=== PATIENT | female | born 1935 | race Caucasian/White ===

== ENCOUNTER 2017-09-09 18:07 | Inpatient (IN) | payer OTHER, MEDICAID ==
[2017-09-09] MEDS: PANTOPRAZOLE 40 MG INJ IV (19:02)
[2017-09-09 19:22] LABS: ADD MAN DIFF? NO
[2017-09-09 19:25] LABS: URINE PH (Dip) POC 8.5 (5.0-8.5)
[2017-09-09 19:25] LABS: ABNORMAL IP MESSAGE 1; BASOPHIL # 0.1 10^3/ul (0.0-0.1); BASOPHILS % 0.5 % (0.0-2.0); HEMATOCRIT 27.5 % (37.0-47.0); LYMPHOCYTES # 0.5 10^3/ul (0.8-2.9); LYMPHOCYTES % 3.1 % (15.0-51.0); MEAN CORPUSCULAR HEMOGLOBIN 20.7 pg (29.0-33.0); MEAN CORPUSCULAR HGB CONC 32.7 g/dl (32.0-37.0); MEAN CORPUSCULAR VOLUME 63.4 fl (82.0-101.0); MEAN PLATELET VOLUME 11.8 fl (7.4-10.4); MONOCYTE # 1.1 10^3/ul (0.3-0.9); MONOCYTES % 7.5 % (0.0-11.0); NEUTROPHIL # 13.1 10^3/ul (1.6-7.5); NEUTROPHILS % 88.4 % (39.0-77.0); NUCLEATED RED BLOOD CELLS% 0.2 /100WBC (0.0-0.0); PLATELET COUNT 282 10^3/UL (140-415); RED BLOOD COUNT 4.34 10^6/ul (4.20-5.40); RED CELL DISTRIBUTION WIDTH 14.6 % (11.5-14.5); URINE BLOOD (Dip) POC Trace-lysed (NEGATIVE); URINE GLUCOSE (Dip) POC Negative (NEGATIVE); URINE KETONES (Dip) POC Negative (NEGATIVE); URINE LEUKOCYTE EST (Dip) POC Trace (NEGATIVE); URINE NITRITE (Dip) POC Negative (NEGATIVE); URINE TOTAL PROTEIN POC 1+ (NEGATIVE)
[2017-09-09 19:25] LABS: WHITE BLOOD COUNT 14.8 10^3/ul (4.8-10.8)
[2017-09-09 19:27] LABS: POSITIVE DIFF @See below
[2017-09-09 19:42] LABS: ALANINE AMINOTRANSFERASE 188 IU/L (13-69); ALBUMIN 4.4 g/dl (3.3-4.9); ALBUMIN/GLOBULIN RATIO 1.07; ALKALINE PHOSPHATASE 146 IU/L (42-121); ANION GAP 16 (8-16); ASPARTATE AMINO TRANSFERASE 399 IU/L (15-46); BILIRUBIN,INDIRECT 1.9 mg/dl (0-1.1); BILIRUBIN,TOTAL 2.5 mg/dl (0.2-1.3); BLOOD UREA NITROGEN 34 mg/dl (7-20); CALCIUM 9.3 mg/dl (8.4-10.2); CARBON DIOXIDE 33 mmol/L (21-31); CHLORIDE 90 mmol/L (97-110); CREATININE 0.78 mg/dl (0.44-1.00); GLUCOSE 105 mg/dl (70-220); POTASSIUM 3.3 mmol/L (3.5-5.1); SODIUM 136 mmol/L (135-144); TOTAL PROTEIN 8.5 g/dl (6.1-8.1)
[2017-09-09 20:38] LABS: LIPASE 47018 U/L (23-300)
[2017-09-09] MEDS: PIPER-TAZO 3.375 GM IV (PMX) 100 ML IVPB (20:40)
[2017-09-09] MEDS: morphine 2 MG INJ IV ×2 (20:40→22:54)
[2017-09-09] MEDS: SOD CHLORIDE 0.9% 1,000 ML IV (20:40)
[2017-09-09] MEDS: ONDANSETRON 4 MG INJ IV (20:40)
[2017-09-09] MEDS: POTASSIUM CHLORIDE 100 ML IVPB (21:31)
[2017-09-09] MEDS ORDERED: morphine 4 MG/ML VIAL IV (22:00)
[2017-09-09] MEDS: NS + KCL 20 MEQ 1,000 ML IV (22:55)
[2017-09-10] MEDS: POTASSIUM CHLORIDE 100 ML IVPB (00:17)
[2017-09-10] MEDS: PIPER-TAZO 2.25 GM (PMX) 50 ML IVPB ×3 (05:59→20:31)
[2017-09-10] MEDS: ONDANSETRON 4 MG INJ IV (05:59)
[2017-09-10] MEDS: PANTOPRAZOLE 40 MG INJ IV (05:59)
[2017-09-10] MEDS: NS + KCL 20 MEQ 1,000 ML IV ×4 (06:04→23:03)
[2017-09-10 08:46] LABS: ADD MAN DIFF? NO
[2017-09-10 08:55] LABS: ABNORMAL IP MESSAGE 1; BASOPHILS % 0.2 % (0.0-2.0); HEMATOCRIT 24.5 % (37.0-47.0); HEMOGLOBIN 8.1 g/dl (12.0-16.0); LYMPHOCYTES # 1.7 10^3/ul (0.8-2.9); LYMPHOCYTES % 8.5 % (15.0-51.0); MEAN CORPUSCULAR HEMOGLOBIN 20.9 pg (29.0-33.0); MEAN CORPUSCULAR HGB CONC 33.1 g/dl (32.0-37.0); MEAN CORPUSCULAR VOLUME 63.1 fl (82.0-101.0); MEAN PLATELET VOLUME 12.1 fl (7.4-10.4); MONOCYTE # 1.5 10^3/ul (0.3-0.9); MONOCYTES % 7.5 % (0.0-11.0); NEUTROPHIL # 16.8 10^3/ul (1.6-7.5); NEUTROPHILS % 83.3 % (39.0-77.0); NUCLEATED RED BLOOD CELLS% 0.1 /100WBC (0.0-0.0); PLATELET COUNT 252 10^3/UL (140-415); RED BLOOD COUNT 3.88 10^6/ul (4.20-5.40); RED CELL DISTRIBUTION WIDTH 15.2 % (11.5-14.5)
[2017-09-10 08:55] LABS: WHITE BLOOD COUNT 20.2 10^3/ul (4.8-10.8)
[2017-09-10 08:59] LABS: POSITIVE DIFF @See below
[2017-09-10 09:16] LABS: ALANINE AMINOTRANSFERASE 646 IU/L (13-69); ALBUMIN 3.1 g/dl (3.3-4.9); ALKALINE PHOSPHATASE 180 IU/L (42-121); ANION GAP 10 (8-16); ASPARTATE AMINO TRANSFERASE 727 IU/L (15-46); BILIRUBIN,TOTAL 3.1 mg/dl (0.2-1.3); BLOOD UREA NITROGEN 22 mg/dl (7-20); CALCIUM 8.5 mg/dl (8.4-10.2); CARBON DIOXIDE 30 mmol/L (21-31); CHLORIDE 107 mmol/L (97-110); CREATININE 0.71 mg/dl (0.44-1.00); GLUCOSE 79 mg/dl (70-220); POTASSIUM 4.8 mmol/L (3.5-5.1); SODIUM 142 mmol/L (135-144); TOTAL PROTEIN 6.3 g/dl (6.1-8.1)
[2017-09-10] MEDS ORDERED: BISACODYL 10 MG SUPP PR (10:00)
[2017-09-10] MEDS ORDERED: NACL 0.9% 3 ML SYG IV (10:00)
[2017-09-10] MEDS ORDERED: ONDANSETRON 4 MG INJ IV (10:00)
[2017-09-10] MEDS ORDERED: DOCUSATE SODIUM 100 MG CAP PO (10:00)
[2017-09-10] MEDS ORDERED: MAGNESIUM HYDROXIDE 30ML CUP PO (10:00)
[2017-09-10 11:26] LABS: LIPASE 8369 U/L (23-300)
[2017-09-10 11:26] LABS: AMYLASE 1434 U/L (11-123)
[2017-09-10 11:54] LABS: LACTIC ACID 0.9 mmol/L (0.5-2.0)
[2017-09-10 12:00] LABS: INR 1.22; PROTIME 15.6 Sec (11.9-14.9); PT RATIO 1.2
[2017-09-10 12:01] LABS: PARTIAL THROMBOPLASTIN TIME 30.9 Sec (25.0-35.0)
[2017-09-10] MEDS: LEVOTHYROXINE 100 MCG VIAL IV (12:20)
[2017-09-10 12:38] LABS: IRON 45 ug/dl (35-150)
[2017-09-10 12:47] LABS: % IRON SATURATION 18 % SAT (22-52); TOTAL IRON BINDING CAPACITY 257 ug/dl (241-421)
[2017-09-11] MEDS: PIPER-TAZO 2.25 GM (PMX) 50 ML IVPB (04:53)
[2017-09-11] MEDS: LEVOTHYROXINE 100 MCG VIAL IV (04:53)
[2017-09-11] MEDS: PANTOPRAZOLE 40 MG INJ IV (04:53)
[2017-09-11] MEDS: NS + KCL 20 MEQ 1,000 ML IV (04:53)
[2017-09-11] MEDS: SOD CHLORIDE 0.9% 1,000 ML IV (05:48)
[2017-09-11 07:38] LABS: ADD MAN DIFF? NO
[2017-09-11 07:42] LABS: WHITE BLOOD COUNT 12.1 10^3/ul (4.8-10.8)
[2017-09-11 07:42] LABS: BASOPHIL # 0.1 10^3/ul (0.0-0.1); BASOPHILS % 0.6 % (0.0-2.0); EOSINOPHILS % 0.2 % (0.0-7.0); HEMATOCRIT 26.4 % (37.0-47.0); HEMOGLOBIN 8.3 g/dl (12.0-16.0); LYMPHOCYTES # 0.9 10^3/ul (0.8-2.9); LYMPHOCYTES % 7.7 % (15.0-51.0); MEAN CORPUSCULAR HEMOGLOBIN 20.5 pg (29.0-33.0); MEAN CORPUSCULAR HGB CONC 31.4 g/dl (32.0-37.0); MEAN CORPUSCULAR VOLUME 65.3 fl (82.0-101.0); MEAN PLATELET VOLUME 12.2 fl (7.4-10.4); MONOCYTE # 0.8 10^3/ul (0.3-0.9); MONOCYTES % 6.2 % (0.0-11.0); NEUTROPHIL # 10.3 10^3/ul (1.6-7.5); NEUTROPHILS % 84.9 % (39.0-77.0); PLATELET COUNT 256 10^3/UL (140-415); RED BLOOD COUNT 4.04 10^6/ul (4.20-5.40); RED CELL DISTRIBUTION WIDTH 15.2 % (11.5-14.5)
[2017-09-11 08:01] LABS: AMYLASE 699 U/L (11-123)
[2017-09-11 08:02] LABS: PHOSPHORUS 3.9 mg/dl (2.5-4.9)
[2017-09-11 08:02] LABS: MAGNESIUM 2.1 mg/dl (1.7-2.5)
[2017-09-11 08:03] LABS: ALANINE AMINOTRANSFERASE 443 IU/L (13-69); ALBUMIN 3.3 g/dl (3.3-4.9); ALBUMIN/GLOBULIN RATIO 0.94; ALKALINE PHOSPHATASE 180 IU/L (42-121); ANION GAP 13 (8-16); ASPARTATE AMINO TRANSFERASE 272 IU/L (15-46); BILIRUBIN,INDIRECT 2.1 mg/dl (0-1.1); BILIRUBIN,TOTAL 2.1 mg/dl (0.2-1.3); BLOOD UREA NITROGEN 22 mg/dl (7-20); CALCIUM 8.6 mg/dl (8.4-10.2); CARBON DIOXIDE 23 mmol/L (21-31); CHLORIDE 113 mmol/L (97-110); CREATININE 0.63 mg/dl (0.44-1.00); SODIUM 145 mmol/L (135-144); TOTAL PROTEIN 6.8 g/dl (6.1-8.1)
[2017-09-11 08:16] LABS: GLUCOSE 38 mg/dl (70-220)
[2017-09-11 08:20] LABS: LIPASE 2869 U/L (23-300)
[2017-09-11 08:34] LABS: HEPATITIS B SURFACE ANTIGEN NEGATIVE (NEGATIVE)
[2017-09-11 08:50] LABS: HEPATITIS C VIRAL ANTIBODY NEGATIVE (NEGATIVE)
[2017-09-11 08:50] LABS: HEPATITIS B SURFACE ANTIBODY NEGATIVE (NEGATIVE)
[2017-09-11] MEDS: DEXTROSE 5%-0.9% NACL 1,000 ML IV ×2 (09:17→19:03)
[2017-09-11 11:06] LABS: SMOOTH MUSCLE AB SCREEN NEGATIVE (NEGATIVE)
[2017-09-11] MEDS: ACETAMINOPHEN 325 MG TAB PO (23:55)
[2017-09-12] MEDS: PANTOPRAZOLE 40 MG INJ IV (06:30)
[2017-09-12] MEDS: LEVOTHYROXINE 100 MCG VIAL IV (06:30)
[2017-09-12] MEDS: DEXTROSE 5%-0.9% NACL 1,000 ML IV (08:24)
[2017-09-12 08:58] LABS: ADD MAN DIFF? NO
[2017-09-12 09:10] LABS: ABNORMAL IP MESSAGE 1; BASOPHIL # 0.1 10^3/ul (0.0-0.1); BASOPHILS % 0.5 % (0.0-2.0); EOSINOPHILS # 0.1 10^3/ul (0.0-0.5); EOSINOPHILS % 0.6 % (0.0-7.0); HEMATOCRIT 24.6 % (37.0-47.0); HEMOGLOBIN 7.8 g/dl (12.0-16.0); LYMPHOCYTES # 1.3 10^3/ul (0.8-2.9); LYMPHOCYTES % 13.6 % (15.0-51.0); MEAN CORPUSCULAR HEMOGLOBIN 20.4 pg (29.0-33.0); MEAN CORPUSCULAR HGB CONC 31.7 g/dl (32.0-37.0); MEAN CORPUSCULAR VOLUME 64.4 fl (82.0-101.0); MEAN PLATELET VOLUME 12.6 fl (7.4-10.4); MONOCYTE # 1.1 10^3/ul (0.3-0.9); MONOCYTES % 11.3 % (0.0-11.0); NEUTROPHILS % 73.5 % (39.0-77.0); PLATELET COUNT 259 10^3/UL (140-415); RED BLOOD COUNT 3.82 10^6/ul (4.20-5.40); RED CELL DISTRIBUTION WIDTH 15.4 % (11.5-14.5)
[2017-09-12 09:10] LABS: WHITE BLOOD COUNT 9.5 10^3/ul (4.8-10.8)
[2017-09-12 09:34] LABS: PHOSPHORUS 2.4 mg/dl (2.5-4.9)
[2017-09-12 09:34] LABS: AMYLASE 199 U/L (11-123); LIPASE 628 U/L (23-300); MAGNESIUM 2.1 mg/dl (1.7-2.5)
[2017-09-12 09:46] LABS: ALANINE AMINOTRANSFERASE 269 IU/L (13-69); ALBUMIN 3.2 g/dl (3.3-4.9); ALBUMIN/GLOBULIN RATIO 0.88; ALKALINE PHOSPHATASE 146 IU/L (42-121); ANION GAP 11 (8-16); ASPARTATE AMINO TRANSFERASE 105 IU/L (15-46); BILIRUBIN,INDIRECT 1.8 mg/dl (0-1.1); BILIRUBIN,TOTAL 1.8 mg/dl (0.2-1.3); BLOOD UREA NITROGEN 9 mg/dl (7-20); CALCIUM 8.4 mg/dl (8.4-10.2); CARBON DIOXIDE 29 mmol/L (21-31); CHLORIDE 108 mmol/L (97-110); CREATININE 0.53 mg/dl (0.44-1.00); GLUCOSE 94 mg/dl (70-220); POTASSIUM 3.5 mmol/L (3.5-5.1); SODIUM 144 mmol/L (135-144); TOTAL PROTEIN 6.8 g/dl (6.1-8.1)
[2017-09-12 10:41] LABS: CHOL/HDL RATIO 3.8 RATIO; HDL CHOLESTEROL 43 mg/dl (33-92); LDL CHOLESTEROL,CALCULATED 101 mg/dl; TRIGLYCERIDES 108 mg/dl (0-149)
[2017-09-12 10:41] LABS: CHOLESTEROL 166 mg/dl (100-200)
[2017-09-12 11:27] LABS: MITOCHONDRIAL TB NEGATIVE (NEGATIVE)
[2017-09-12] MEDS: ACETAMINOPHEN 325 MG TAB PO (13:41)
[2017-09-12 15:12] LABS: ANA SCREEN NEGATIVE (NEGATIVE); HAPTOGLOBIN 181 mg/dL (43-212)
== END 2017-09-12 20:14 | disposition home health service (06) | DRG 440 ==
LOC: E/R 18:07 → TEL 20:42
DX: K85.10 Biliary acute pancreatitis without necrosis or infection (principal); I10 Essential (primary) hypertension; E03.9 Hypothyroidism, unspecified; E86.0 Dehydration; E87.6 Hypokalemia; D64.9 Anemia, unspecified; M81.0 Age-related osteoporosis without current pathological fracture
CPT/HCPCS: 36415; 71045; 74181; 76705; 80048; 80053; 80061; 80076; 81003; 82150; 82728; 82962; 83010; 83540; 83605; 83690; 83735; 84100; 85025; 85610; 85730; 86038; 86255; 86706; 86708; 86709; 86803; 87340; 93306; 96365; 96375; 99291-25

== ENCOUNTER 2017-09-19 13:44 | Emergency (ER) | payer OTHER, MEDICAID ==
[2017-09-19 15:02] LABS: HEMATOCRIT 26.1 % (37.0-47.0); HEMOGLOBIN 8.4 g/dl (12.0-16.0); MEAN CORPUSCULAR HEMOGLOBIN 20.1 pg (29.0-33.0); MEAN CORPUSCULAR HGB CONC 32.2 g/dl (32.0-37.0); MEAN CORPUSCULAR VOLUME 62.6 fl (82.0-101.0); MEAN PLATELET VOLUME 11.2 fl (7.4-10.4); PLATELET COUNT 356 10^3/UL (140-415); RED BLOOD COUNT 4.17 10^6/ul (4.20-5.40); RED CELL DISTRIBUTION WIDTH 14.2 % (11.5-14.5)
[2017-09-19 15:02] LABS: WHITE BLOOD COUNT 4.6 10^3/ul (4.8-10.8)
[2017-09-19 15:12] LABS: ADD MAN DIFF? YES
[2017-09-19 15:20] LABS: ALANINE AMINOTRANSFERASE 68 IU/L (13-69); ALKALINE PHOSPHATASE 106 IU/L (42-121); ANION GAP 15 (8-16); ASPARTATE AMINO TRANSFERASE 27 IU/L (15-46); BILIRUBIN,INDIRECT 0.8 mg/dl (0-1.1); BILIRUBIN,TOTAL 0.8 mg/dl (0.2-1.3); BLOOD UREA NITROGEN 13 mg/dl (7-20); CALCIUM 9.2 mg/dl (8.4-10.2); CARBON DIOXIDE 28 mmol/L (21-31); CHLORIDE 97 mmol/L (97-110); CREATININE 0.94 mg/dl (0.44-1.00); GLUCOSE 98 mg/dl (70-220); LIPASE 329 U/L (23-300); POTASSIUM 4.1 mmol/L (3.5-5.1); SODIUM 136 mmol/L (135-144)
[2017-09-19] MEDS: ONDANSETRON 4 MG INJ IV (15:21)
[2017-09-19] MEDS: SOD CHLORIDE 0.9% 1,000 ML IV (15:21)
[2017-09-19] MEDS: BELLADONNA/PHENOBARBITAL TAB PO (15:21)
[2017-09-19] MEDS: LIDOCAINE/MYLANTA 40 ML BTL PO (15:21)
[2017-09-19] MEDS: FAMOTIDINE 20 MG TAB PO (15:21)
[2017-09-19] MEDS: KETOROLAC 15 MG INJ IV (15:22)
[2017-09-19 15:35] LABS: ADD UMIC YES; UR ASCORBIC ACID NEGATIVE (NEGATIVE); UR BACTERIA FEW /HPF (NONE SEEN); UR BILIRUBIN (Dip) NEGATIVE (NEGATIVE); UR BLOOD (Dip) 1+ mg/dL (NEGATIVE); UR CLARITY CLOUDY (CLEAR); UR COLOR AMBER (YELLOW); UR GLUCOSE (Dip) NEGATIVE (NEGATIVE); UR HYALINE CAST MODERATE /HPF (NONE SEEN); UR KETONES (Dip) NEGATIVE (NEGATIVE); UR LEUKOCYTE ESTERASE (Dip) 1+ Leu/ul (NEGATIVE); UR MUCUS FEW /HPF (NONE SEEN); UR NITRITE (Dip) NEGATIVE (NEGATIVE); UR RBC 12 /HPF (0-5); UR SPECIFIC GRAVITY (Dip) 1.012 (1.003-1.030); UR SQUAMOUS EPITHELIAL CELL MODERATE /HPF (FEW); UR TOTAL PROTEIN (Dip) 1+ mg/dl (NEGATIVE); UR UROBILINOGEN (Dip) NEGATIVE (NEGATIVE); UR WBC 14 /HPF (0-5)
[2017-09-19 15:45] LABS: TROPONIN-I < 0.010 ng/ml (0.000-0.120)
[2017-09-19 15:50] LABS: ANISOCYTOSIS 2+ (0-0); BAND NEUTROPHILS #M 0.1 10^3/ul (0.0-0.6); BAND NEUTROPHILS % (M) 4 % (0-4); BASOPHILS % (M) 1 % (0-2); GIANT THROMBO% (M) 2 % (0-0); HYPOCHROMASIA 2+ (0-0); LYMPHOCYTES #M 1.3 10^3/ul (0.8-2.9); LYMPHOCYTES % (M) 29 % (15-51); MICROCYTOSIS 2+ (0-0); MONOCYTE #M 0.9 10^3/ul (0.3-0.9); MONOCYTES % (M) 20 % (0-11); PLATELET ESTIMATE NORMAL; POIKILOCYTOSIS 2+ (0-0); POLYCHROMASIA 2+ (0-0); SEG NEUT #M 2.1 10^3/ul (1.6-7.5); SEGMENTED NEUTROPHILS (M) % 46 % (39-77); SMUDGE%M 5 % (0-0); TARGET CELLS 1+ (0-0)
[2017-09-19] MEDS: LOPERAMIDE 2 MG CAP PO (16:43)
[2017-09-19] MEDS: CEFTRIAXONE 1 GM/50 ML (PMX) 50 ML IVPB (16:43)
== END 2017-09-19 18:09 | disposition home or self-care (01) ==
LOC: E/R 13:44
DX: R10.9 Unspecified abdominal pain (principal); R11.2 Nausea with vomiting, unspecified; R19.7 Diarrhea, unspecified; I10 Essential (primary) hypertension; E03.9 Hypothyroidism, unspecified; R40.2142 Coma scale, eyes open, spontaneous, at arrival to emergency department; R40.2252 Coma scale, best verbal response, oriented, at arrival to emergency department; R40.2362 Coma scale, best motor response, obeys commands, at arrival to emergency department
CPT/HCPCS: 36415; 80053; 81001; 83690; 84484; 85025; 93005; 96375; 99284-25

== ENCOUNTER 2017-09-28 14:57 | Inpatient (IN) | payer OTHER, MEDICAID ==
[2017-09-28 16:40] LABS: ADD MAN DIFF? NO; BASOPHILS % 0.4 % (0.0-2.0); EOSINOPHILS # 0.1 10^3/ul (0.0-0.5); EOSINOPHILS % 0.8 % (0.0-7.0); HEMATOCRIT 25.7 % (37.0-47.0); HEMOGLOBIN 8.4 g/dl (12.0-16.0); LYMPHOCYTES # 2.4 10^3/ul (0.8-2.9); LYMPHOCYTES % 30.6 % (15.0-51.0); MEAN CORPUSCULAR HEMOGLOBIN 20.1 pg (29.0-33.0); MEAN CORPUSCULAR HGB CONC 32.7 g/dl (32.0-37.0); MEAN CORPUSCULAR VOLUME 61.5 fl (82.0-101.0); MEAN PLATELET VOLUME 11.4 fl (7.4-10.4); MONOCYTE # 0.9 10^3/ul (0.3-0.9); MONOCYTES % 11.3 % (0.0-11.0); NEUTROPHIL # 4.4 10^3/ul (1.6-7.5); NEUTROPHILS % 56.6 % (39.0-77.0); PLATELET COUNT 343 10^3/UL (140-415); RED BLOOD COUNT 4.18 10^6/ul (4.20-5.40)
[2017-09-28 16:40] LABS: WHITE BLOOD COUNT 7.8 10^3/ul (4.8-10.8)
[2017-09-28 16:46] LABS: ADD UMIC YES; UR ASCORBIC ACID NEGATIVE (NEGATIVE); UR BILIRUBIN (Dip) NEGATIVE (NEGATIVE); UR BLOOD (Dip) 1+ mg/dL (NEGATIVE); UR CLARITY CLEAR (CLEAR); UR COLOR COLORLESS (YELLOW); UR GLUCOSE (Dip) NEGATIVE (NEGATIVE); UR KETONES (Dip) NEGATIVE (NEGATIVE); UR LEUKOCYTE ESTERASE (Dip) TRACE Leu/ul (NEGATIVE); UR NITRITE (Dip) NEGATIVE (NEGATIVE); UR RBC 0 /HPF (0-5); UR SPECIFIC GRAVITY (Dip) 1.002 (1.003-1.030); UR TOTAL PROTEIN (Dip) NEGATIVE (NEGATIVE); UR UROBILINOGEN (Dip) NEGATIVE (NEGATIVE); UR WBC 3 /HPF (0-5)
[2017-09-28 16:58] LABS: ALANINE AMINOTRANSFERASE 361 IU/L (13-69); ALBUMIN 4.2 g/dl (3.3-4.9); ALBUMIN/GLOBULIN RATIO 1.23; ALKALINE PHOSPHATASE 281 IU/L (42-121); ANION GAP 17 (8-16); ASPARTATE AMINO TRANSFERASE 301 IU/L (15-46); BILIRUBIN,INDIRECT 1.5 mg/dl (0-1.1); BILIRUBIN,TOTAL 1.5 mg/dl (0.2-1.3); BLOOD UREA NITROGEN 16 mg/dl (7-20); CALCIUM 9.2 mg/dl (8.4-10.2); CARBON DIOXIDE 31 mmol/L (21-31); CHLORIDE 84 mmol/L (97-110); CREATININE 0.73 mg/dl (0.44-1.00); GLUCOSE 88 mg/dl (70-220); POTASSIUM 4.2 mmol/L (3.5-5.1); SODIUM 128 mmol/L (135-144); TOTAL PROTEIN 7.6 g/dl (6.1-8.1)
[2017-09-28 17:09] LABS: LIPASE 3246 U/L (23-300)
[2017-09-28] MEDS ORDERED: ACETAMINOPHEN 325 MG TAB PO (17:30)
[2017-09-28] MEDS ORDERED: ONDANSETRON 4 MG INJ IV (17:30)
[2017-09-28] MEDS ORDERED: NACL 0.9% 3 ML SYG IV (18:00)
[2017-09-28] MEDS ORDERED: ACETAMINOPHEN 650 MG SUPP PR (18:00)
[2017-09-28] MEDS ORDERED: hydrALAzine 20 MG INJ IV (18:00)
[2017-09-28] MEDS ORDERED: DOCUSATE SODIUM 100 MG CAP PO (18:00)
[2017-09-28] MEDS: SOD CHLORIDE 0.9% 1,000 ML IV (18:27)
[2017-09-28] MEDS: FAMOTIDINE 20 MG INJ IV (18:47)
[2017-09-28 19:50] LABS: INR 1.06; PROTIME 13.9 Sec (11.9-14.9); PT RATIO 1.1
[2017-09-28 19:51] LABS: PARTIAL THROMBOPLASTIN TIME 28.1 Sec (25.0-35.0)
[2017-09-28] MEDS ORDERED: FAMOTIDINE 20 MG INJ IV (21:00)
[2017-09-29] MEDS: SOD CHLORIDE 0.9% 1,000 ML IV ×2 (03:32→13:38)
[2017-09-29] MEDS: LEVOTHYROXINE 100 MCG VIAL IV (05:57)
[2017-09-29 06:49] LABS: WHITE BLOOD COUNT 5.7 10^3/ul (4.8-10.8)
[2017-09-29 06:49] LABS: BASOPHIL # 0.1 10^3/ul (0.0-0.1); EOSINOPHILS # 0.1 10^3/ul (0.0-0.5); EOSINOPHILS % 2.1 % (0.0-7.0); HEMATOCRIT 26.4 % (37.0-47.0); HEMOGLOBIN 8.7 g/dl (12.0-16.0); LYMPHOCYTES % 34.3 % (15.0-51.0); MEAN CORPUSCULAR HEMOGLOBIN 20.4 pg (29.0-33.0); MEAN PLATELET VOLUME 11.5 fl (7.4-10.4); MONOCYTE # 0.8 10^3/ul (0.3-0.9); MONOCYTES % 14.2 % (0.0-11.0); NEUTROPHIL # 2.7 10^3/ul (1.6-7.5); NEUTROPHILS % 47.9 % (39.0-77.0); NUCLEATED RED BLOOD CELLS% 0.3 /100WBC (0.0-0.0); PLATELET COUNT 348 10^3/UL (140-415); RED BLOOD COUNT 4.26 10^6/ul (4.20-5.40); RED CELL DISTRIBUTION WIDTH 14.3 % (11.5-14.5)
[2017-09-29 06:50] LABS: ADD MAN DIFF? NO
[2017-09-29 07:21] LABS: ALANINE AMINOTRANSFERASE 251 IU/L (13-69); ALBUMIN 3.5 g/dl (3.3-4.9); ALBUMIN/GLOBULIN RATIO 0.89; ALKALINE PHOSPHATASE 241 IU/L (42-121); AMYLASE 363 U/L (11-123); ANION GAP 14 (8-16); ASPARTATE AMINO TRANSFERASE 167 IU/L (15-46); BILIRUBIN,INDIRECT 1.3 mg/dl (0-1.1); BILIRUBIN,TOTAL 1.3 mg/dl (0.2-1.3); BLOOD UREA NITROGEN 13 mg/dl (7-20); CALCIUM 9.3 mg/dl (8.4-10.2); CARBON DIOXIDE 27 mmol/L (21-31); CHLORIDE 102 mmol/L (97-110); CREATININE 0.65 mg/dl (0.44-1.00); GLUCOSE 71 mg/dl (70-220); LIPASE 1117 U/L (23-300); PHOSPHORUS 4.2 mg/dl (2.5-4.9); POTASSIUM 4.5 mmol/L (3.5-5.1); SODIUM 138 mmol/L (135-144); TOTAL PROTEIN 7.4 g/dl (6.1-8.1)
[2017-09-29] MEDS: FAMOTIDINE 20 MG INJ IV (08:31)
[2017-09-29] MEDS ORDERED: GUAIFENESIN 20 MG/ML 5ML CUP PO (14:00)
[2017-09-30] MEDS: SOD CHLORIDE 0.9% 1,000 ML IV (00:58)
[2017-09-30] MEDS: ONDANSETRON 4 MG INJ IV (04:53)
[2017-09-30] MEDS: LEVOTHYROXINE 100 MCG VIAL IV (04:54)
[2017-09-30 05:52] LABS: ADD MAN DIFF? NO
[2017-09-30 05:56] LABS: BASOPHIL # 0.1 10^3/ul (0.0-0.1); BASOPHILS % 1.2 % (0.0-2.0); EOSINOPHILS % 0.5 % (0.0-7.0); HEMATOCRIT 28.2 % (37.0-47.0); HEMOGLOBIN 8.8 g/dl (12.0-16.0); LYMPHOCYTES # 1.3 10^3/ul (0.8-2.9); LYMPHOCYTES % 21.2 % (15.0-51.0); MEAN CORPUSCULAR HEMOGLOBIN 19.9 pg (29.0-33.0); MEAN CORPUSCULAR HGB CONC 31.2 g/dl (32.0-37.0); MEAN CORPUSCULAR VOLUME 63.7 fl (82.0-101.0); MEAN PLATELET VOLUME 11.8 fl (7.4-10.4); MONOCYTE # 0.6 10^3/ul (0.3-0.9); MONOCYTES % 9.3 % (0.0-11.0); NEUTROPHILS % 67.5 % (39.0-77.0); PLATELET COUNT 366 10^3/UL (140-415); RED BLOOD COUNT 4.43 10^6/ul (4.20-5.40); RED CELL DISTRIBUTION WIDTH 14.8 % (11.5-14.5)
[2017-09-30 06:19] LABS: PHOSPHORUS 3.9 mg/dl (2.5-4.9)
[2017-09-30 06:19] LABS: MAGNESIUM 1.9 mg/dl (1.7-2.5)
[2017-09-30 06:31] LABS: ALANINE AMINOTRANSFERASE 177 IU/L (13-69); ALBUMIN 3.8 g/dl (3.3-4.9); ALBUMIN/GLOBULIN RATIO 1.11; ALKALINE PHOSPHATASE 223 IU/L (42-121); AMYLASE 183 U/L (11-123); ANION GAP 23 (8-16); ASPARTATE AMINO TRANSFERASE 85 IU/L (15-46); BILIRUBIN,INDIRECT 1.1 mg/dl (0-1.1); BILIRUBIN,TOTAL 1.1 mg/dl (0.2-1.3); BLOOD UREA NITROGEN 13 mg/dl (7-20); CALCIUM 9.1 mg/dl (8.4-10.2); CARBON DIOXIDE 21 mmol/L (21-31); CHLORIDE 102 mmol/L (97-110); CREATININE 0.57 mg/dl (0.44-1.00); LIPASE 416 U/L (23-300); POTASSIUM 4.5 mmol/L (3.5-5.1); SODIUM 141 mmol/L (135-144); TOTAL PROTEIN 7.2 g/dl (6.1-8.1)
[2017-09-30 06:36] LABS: GLUCOSE 38 mg/dl (70-220)
[2017-09-30] MEDS ORDERED: LIDOCAINE 2% (SDV) 5 ML INJ (07:00)
[2017-09-30] MEDS: DEXTROSE 5%-0.9% NACL 1,000 ML IV ×2 (07:46→15:18)
[2017-09-30] MEDS: FAMOTIDINE 20 MG INJ IV (08:29)
[2017-09-30] MEDS ORDERED: FENTAnyl 50 MCG/ML VIAL (21:46)
[2017-09-30] MEDS ORDERED: SUGAMMADEX SODIUM 200 MG/2 ML VIAL IV (21:47)
[2017-09-30] MEDS ORDERED: DIPHENHYDRAMINE 50 MG INJ IV (22:00)
[2017-09-30] MEDS ORDERED: ONDANSETRON 4 MG INJ IV (22:00)
[2017-09-30] MEDS ORDERED: EPHEDrine SULFATE 50 MG/5 ML SYG IV (22:00)
[2017-09-30] MEDS ORDERED: MIDAZOLAM 1 MG/ML 2 ML INJ IV (22:00)
[2017-09-30] MEDS ORDERED: FENTAnyl 50 MCG/ML VIAL IV (22:00)
[2017-09-30] MEDS ORDERED: OXYCODONE/ACETAMINOPHEN (5/325) TAB PO (22:00)
[2017-09-30] MEDS ORDERED: HYDROmorphONE 1 MG/5 ML IV SYRINGE IV ×2 (22:00)
[2017-09-30] MEDS ORDERED: hydrALAzine 20 MG INJ IV (22:00)
[2017-09-30] MEDS ORDERED: MEPERIDINE 25 MG INJ IV (22:00)
[2017-09-30] MEDS ORDERED: ALBUTEROL 0.083% (NEB) 2.5 MG/3 ML AMP HHN (22:00)
[2017-09-30] MEDS ORDERED: METOCLOPRAMIDE 10 MG INJ IV (22:00)
[2017-09-30] MEDS ORDERED: LABETALOL HCL 20MG INJ IV (22:00)
[2017-09-30] MEDS: LIDOCAINE 1% (MPF) 30 ML INJ (22:35)
[2017-09-30] MEDS: BUPIVACAINE 0.25%/EPI (SDV) 30 ML INJ (22:35)
[2017-09-30] MEDS ORDERED: CEFAZOLIN 1 GM INJ (22:37)
[2017-09-30] MEDS ORDERED: DEXAMETHASONE 4 MG/ML 1 ML INJ (22:37)
[2017-09-30] MEDS ORDERED: ROCURONIUM 50 MG INJ (22:37)
[2017-09-30] MEDS ORDERED: PROPOFOL 20 ML (22:37)
[2017-09-30] MEDS ORDERED: ONDANSETRON 4 MG INJ (22:38)
[2017-09-30] MEDS: FENTAnyl 50 MCG/ML VIAL IV ×2 (23:41→23:53)
[2017-10-01] MEDS: HYDROmorphONE 1 MG/5 ML IV SYRINGE IV (00:08)
[2017-10-01] MEDS: DEXTROSE 5%-0.9% NACL 1,000 ML IV ×2 (01:07→10:03)
[2017-10-01] MEDS: morphine 2 MG INJ IV ×2 (03:48→08:03)
[2017-10-01] MEDS: LEVOTHYROXINE 100 MCG VIAL IV (05:26)
[2017-10-01 05:48] LABS: ADD MAN DIFF? NO
[2017-10-01 05:52] LABS: ABNORMAL IP MESSAGE 1; BASOPHILS % 0.2 % (0.0-2.0); HEMATOCRIT 27.9 % (37.0-47.0); HEMOGLOBIN 8.8 g/dl (12.0-16.0); LYMPHOCYTES # 0.4 10^3/ul (0.8-2.9); LYMPHOCYTES % 2.7 % (15.0-51.0); MEAN CORPUSCULAR HEMOGLOBIN 19.8 pg (29.0-33.0); MEAN CORPUSCULAR HGB CONC 31.5 g/dl (32.0-37.0); MEAN CORPUSCULAR VOLUME 62.7 fl (82.0-101.0); MEAN PLATELET VOLUME 11.8 fl (7.4-10.4); MONOCYTE # 0.7 10^3/ul (0.3-0.9); MONOCYTES % 4.3 % (0.0-11.0); NEUTROPHIL # 14.5 10^3/ul (1.6-7.5); NEUTROPHILS % 92.4 % (39.0-77.0); PLATELET COUNT 378 10^3/UL (140-415); RED BLOOD COUNT 4.45 10^6/ul (4.20-5.40); RED CELL DISTRIBUTION WIDTH 14.8 % (11.5-14.5)
[2017-10-01 05:52] LABS: WHITE BLOOD COUNT 15.7 10^3/ul (4.8-10.8)
[2017-10-01 06:06] LABS: POSITIVE DIFF @See below
[2017-10-01 06:22] LABS: ANION GAP 14 (8-16); BLOOD UREA NITROGEN 4 mg/dl (7-20); CALCIUM 8.6 mg/dl (8.4-10.2); CARBON DIOXIDE 28 mmol/L (21-31); CHLORIDE 100 mmol/L (97-110); CREATININE 0.49 mg/dl (0.44-1.00); GLUCOSE 184 mg/dl (70-220); POTASSIUM 3.4 mmol/L (3.5-5.1); SODIUM 139 mmol/L (135-144)
[2017-10-01] MEDS: FAMOTIDINE 20 MG INJ IV (08:03)
[2017-10-01] MEDS: POTASSIUM CHLORIDE 50 ML IVPB ×3 (09:59→13:34)
[2017-10-01] MEDS ORDERED: morphine 2 MG INJ IV (10:00)
[2017-10-01] MEDS: AMLODIPINE 10 MG TAB PO (10:03)
[2017-10-01] MEDS: ACETAMINOPHEN 325 MG TAB PO (13:36)
[2017-10-01] MEDS: morphine LIQ (10 MG/5 ML) CUP PO ×2 (17:48→22:21)
[2017-10-02] MEDS: morphine LIQ (10 MG/5 ML) CUP PO ×2 (04:02→09:10)
[2017-10-02] MEDS: LEVOTHYROXINE 100 MCG TAB PO (06:05)
[2017-10-02 07:24] LABS: ADD MAN DIFF? NO
[2017-10-02 07:26] LABS: WHITE BLOOD COUNT 12.4 10^3/ul (4.8-10.8)
[2017-10-02 07:26] LABS: BASOPHIL # 0.1 10^3/ul (0.0-0.1); BASOPHILS % 0.6 % (0.0-2.0); EOSINOPHILS % 0.1 % (0.0-7.0); HEMATOCRIT 25.6 % (37.0-47.0); HEMOGLOBIN 8.2 g/dl (12.0-16.0); LYMPHOCYTES # 2.3 10^3/ul (0.8-2.9); LYMPHOCYTES % 18.6 % (15.0-51.0); MEAN CORPUSCULAR HEMOGLOBIN 20.2 pg (29.0-33.0); MEAN CORPUSCULAR VOLUME 63.1 fl (82.0-101.0); MEAN PLATELET VOLUME 11.6 fl (7.4-10.4); MONOCYTE # 1.2 10^3/ul (0.3-0.9); MONOCYTES % 9.9 % (0.0-11.0); NEUTROPHIL # 8.7 10^3/ul (1.6-7.5); NEUTROPHILS % 70.2 % (39.0-77.0); PLATELET COUNT 292 10^3/UL (140-415); RED BLOOD COUNT 4.06 10^6/ul (4.20-5.40); RED CELL DISTRIBUTION WIDTH 14.6 % (11.5-14.5)
[2017-10-02 07:48] LABS: ANION GAP 14 (8-16); BLOOD UREA NITROGEN 4 mg/dl (7-20); CALCIUM 8.5 mg/dl (8.4-10.2); CARBON DIOXIDE 29 mmol/L (21-31); CHLORIDE 100 mmol/L (97-110); CREATININE 0.51 mg/dl (0.44-1.00); GLUCOSE 79 mg/dl (70-220); POTASSIUM 3.8 mmol/L (3.5-5.1); SODIUM 139 mmol/L (135-144)
[2017-10-02 07:51] LABS: MAGNESIUM 1.5 mg/dl (1.7-2.5)
[2017-10-02] MEDS: FAMOTIDINE 20 MG INJ IV (09:10)
[2017-10-02] MEDS: AMLODIPINE 10 MG TAB PO (09:11)
[2017-10-02] MEDS ORDERED: traMADol 50 MG TAB (11:53)
[2017-10-02] MEDS ORDERED: KETOROLAC 30 MG INJ (11:57)
[2017-10-02] MEDS: MAGNESIUM SULFATE 2 GM/50 ML 50 ML IVPB (11:59)
[2017-10-02] MEDS: KETOROLAC 30 MG INJ IV (11:59)
[2017-10-02 12:11] LABS: ALANINE AMINOTRANSFERASE 109 IU/L (13-69); ALBUMIN 2.9 g/dl (3.3-4.9); ALKALINE PHOSPHATASE 137 IU/L (42-121); ASPARTATE AMINO TRANSFERASE 53 IU/L (15-46); BILIRUBIN,INDIRECT 1.3 mg/dl (0-1.1); BILIRUBIN,TOTAL 1.3 mg/dl (0.2-1.3); LIPASE 121 U/L (23-300); TOTAL PROTEIN 5.9 g/dl (6.1-8.1)
[2017-10-02] MEDS: ONDANSETRON 4 MG INJ IV (15:44)
[2017-10-02] MEDS: HYDROCODONE/APAP (10/325) TAB PO (17:48)
[2017-10-02] MEDS: MAGNESIUM HYDROXIDE 30ML CUP PO (21:39)
[2017-10-03] MEDS: LEVOTHYROXINE 100 MCG TAB PO (06:31)
[2017-10-03] MEDS: AMLODIPINE 10 MG TAB PO (08:45)
[2017-10-03] MEDS: FAMOTIDINE 20 MG INJ IV (08:45)
[2017-10-03] MEDS: HYDROCODONE/APAP (10/325) TAB PO (08:45)
[2017-10-03 11:50] LABS: ADD MAN DIFF? NO
[2017-10-03 11:56] LABS: BASOPHIL # 0.1 10^3/ul (0.0-0.1); BASOPHILS % 0.4 % (0.0-2.0); EOSINOPHILS # 0.1 10^3/ul (0.0-0.5); EOSINOPHILS % 0.5 % (0.0-7.0); HEMATOCRIT 27.2 % (37.0-47.0); HEMOGLOBIN 8.7 g/dl (12.0-16.0); LYMPHOCYTES # 2.3 10^3/ul (0.8-2.9); LYMPHOCYTES % 16.1 % (15.0-51.0); MEAN CORPUSCULAR HEMOGLOBIN 20.1 pg (29.0-33.0); MEAN CORPUSCULAR VOLUME 62.8 fl (82.0-101.0); MEAN PLATELET VOLUME 11.7 fl (7.4-10.4); MONOCYTE # 1.1 10^3/ul (0.3-0.9); MONOCYTES % 7.9 % (0.0-11.0); NEUTROPHIL # 10.4 10^3/ul (1.6-7.5); NEUTROPHILS % 74.6 % (39.0-77.0); NUCLEATED RED BLOOD CELLS% 0.2 /100WBC (0.0-0.0); PLATELET COUNT 289 10^3/UL (140-415); RED BLOOD COUNT 4.33 10^6/ul (4.20-5.40); RED CELL DISTRIBUTION WIDTH 14.4 % (11.5-14.5)
[2017-10-03 12:27] LABS: ALANINE AMINOTRANSFERASE 93 IU/L (13-69); ALBUMIN 3.5 g/dl (3.3-4.9); ALKALINE PHOSPHATASE 158 IU/L (42-121); ASPARTATE AMINO TRANSFERASE 39 IU/L (15-46); BILIRUBIN,INDIRECT 1.6 mg/dl (0-1.1); BILIRUBIN,TOTAL 1.6 mg/dl (0.2-1.3); TOTAL PROTEIN 7.3 g/dl (6.1-8.1)
[2017-10-03] MEDS: ACETAMINOPHEN 325 MG TAB PO (13:13)
[2017-10-03] MEDS: KETOROLAC 15 MG INJ IV (15:29)
[2017-10-03] MEDS: BISACODYL 10 MG SUPP PR (15:52)
[2017-10-03] MEDS: ONDANSETRON 4 MG INJ IV (18:27)
[2017-10-04] MEDS: KETOROLAC 15 MG INJ IV ×3 (06:23→18:10)
[2017-10-04] MEDS: LEVOTHYROXINE 100 MCG TAB PO (06:23)
[2017-10-04] MEDS ORDERED: LIDOCAINE 2% (SDV) 5 ML INJ (07:00)
[2017-10-04 07:29] LABS: ADD MAN DIFF? NO
[2017-10-04 07:33] LABS: WHITE BLOOD COUNT 9.7 10^3/ul (4.8-10.8)
[2017-10-04 07:33] LABS: BASOPHIL # 0.1 10^3/ul (0.0-0.1); BASOPHILS % 0.6 % (0.0-2.0); EOSINOPHILS # 0.2 10^3/ul (0.0-0.5); EOSINOPHILS % 2.2 % (0.0-7.0); HEMATOCRIT 25.4 % (37.0-47.0); HEMOGLOBIN 8.1 g/dl (12.0-16.0); LYMPHOCYTES # 1.5 10^3/ul (0.8-2.9); MEAN CORPUSCULAR HGB CONC 31.9 g/dl (32.0-37.0); MEAN CORPUSCULAR VOLUME 62.7 fl (82.0-101.0); MEAN PLATELET VOLUME 11.8 fl (7.4-10.4); MONOCYTE # 0.9 10^3/ul (0.3-0.9); MONOCYTES % 9.2 % (0.0-11.0); NEUTROPHILS % 72.5 % (39.0-77.0); PLATELET COUNT 272 10^3/UL (140-415); RED BLOOD COUNT 4.05 10^6/ul (4.20-5.40); RED CELL DISTRIBUTION WIDTH 14.3 % (11.5-14.5)
[2017-10-04 08:05] LABS: ALANINE AMINOTRANSFERASE 75 IU/L (13-69); ALBUMIN 3.2 g/dl (3.3-4.9); ALBUMIN/GLOBULIN RATIO 0.91; ALKALINE PHOSPHATASE 138 IU/L (42-121); ANION GAP 12 (8-16); ASPARTATE AMINO TRANSFERASE 28 IU/L (15-46); BILIRUBIN,INDIRECT 1.3 mg/dl (0-1.1); BILIRUBIN,TOTAL 1.3 mg/dl (0.2-1.3); BLOOD UREA NITROGEN 7 mg/dl (7-20); CALCIUM 8.6 mg/dl (8.4-10.2); CARBON DIOXIDE 31 mmol/L (21-31); CHLORIDE 100 mmol/L (97-110); CREATININE 0.62 mg/dl (0.44-1.00); GLUCOSE 77 mg/dl (70-220); POTASSIUM 4.6 mmol/L (3.5-5.1); SODIUM 138 mmol/L (135-144); TOTAL PROTEIN 6.7 g/dl (6.1-8.1)
[2017-10-04] MEDS: AMLODIPINE 10 MG TAB PO (08:45)
[2017-10-04] MEDS: FAMOTIDINE 20 MG INJ IV (08:45)
[2017-10-04] MEDS: INDOMETHACIN 50 MG SUPP PR (15:30)
[2017-10-04] MEDS ORDERED: IOHEXOL 300MG/ML 30 ML BTL (19:37)
[2017-10-04] MEDS ORDERED: SUGAMMADEX SODIUM 200 MG/2 ML VIAL IV (20:50)
[2017-10-04] MEDS ORDERED: ROCURONIUM 50 MG INJ (20:50)
[2017-10-04] MEDS ORDERED: SUCCINYLCHOLINE CHLORIDE 100 MG/5 ML SYG IV (20:50)
[2017-10-04] MEDS ORDERED: PROPOFOL 20 ML (20:50)
[2017-10-04] MEDS: ACETAMINOPHEN 325 MG TAB PO (22:03)
[2017-10-04] MEDS: ONDANSETRON 4 MG INJ IV (22:09)
[2017-10-04] MEDS: KETOROLAC 30 MG INJ IV (23:08)
[2017-10-05 05:13] LABS: ALANINE AMINOTRANSFERASE 62 IU/L (13-69); ALBUMIN 3.1 g/dl (3.3-4.9); ALBUMIN/GLOBULIN RATIO 0.88; ALKALINE PHOSPHATASE 129 IU/L (42-121); ANION GAP 14 (8-16); ASPARTATE AMINO TRANSFERASE 21 IU/L (15-46); BILIRUBIN,INDIRECT 1.1 mg/dl (0-1.1); BILIRUBIN,TOTAL 1.1 mg/dl (0.2-1.3); BLOOD UREA NITROGEN 10 mg/dl (7-20); CALCIUM 8.7 mg/dl (8.4-10.2); CARBON DIOXIDE 27 mmol/L (21-31); CHLORIDE 105 mmol/L (97-110); CREATININE 0.62 mg/dl (0.44-1.00); GLUCOSE 70 mg/dl (70-220); POTASSIUM 4.1 mmol/L (3.5-5.1); SODIUM 142 mmol/L (135-144); TOTAL PROTEIN 6.6 g/dl (6.1-8.1)
[2017-10-05] MEDS: LEVOTHYROXINE 100 MCG TAB PO (06:14)
[2017-10-05] MEDS: FAMOTIDINE 20 MG INJ IV (08:56)
[2017-10-05] MEDS: AMLODIPINE 10 MG TAB PO (08:56)
== END 2017-10-05 17:18 | disposition home health service (06) | DRG 417 ==
LOC: E/R 14:57 → PP2 17:26
PROC: 0FT44ZZ Resection of Gallbladder, Percutaneous Endoscopic Approach (ICD-10-PCS; principal; 2017-09-30 21:30)
PROC: 0FB04ZX Excision of Liver, Percutaneous Endoscopic Approach, Diagnostic (ICD-10-PCS; 2017-09-30 21:30)
PROC: 0F798DZ Dilation of Common Bile Duct with Intraluminal Device, Via Natural or Artificial Opening Endoscopic (ICD-10-PCS; 2017-09-30 22:17)
DX: K80.66 Calculus of gallbladder and bile duct with acute and chronic cholecystitis without obstruction (principal); K85.10 Biliary acute pancreatitis without necrosis or infection; E87.1 Hypo-osmolality and hyponatremia; K82.1 Hydrops of gallbladder; E03.9 Hypothyroidism, unspecified; I10 Essential (primary) hypertension; D50.9 Iron deficiency anemia, unspecified; M81.0 Age-related osteoporosis without current pathological fracture; E80.6 Other disorders of bilirubin metabolism
CPT/HCPCS: 36415; 71045; 74181; 74330; 76705; 80048; 80053; 80076; 81001; 82150; 82962; 83690; 83735; 84100; 85025; 85610; 85730; 88304; 88305; 88313; 93005; 97161; 99285-25

== ENCOUNTER 2017-10-18 11:57 | Emergency (ER) | payer OTHER, MEDICAID ==
[2017-10-18] MEDS: ACETAMINOPHEN 325 MG TAB PO (13:42)
[2017-10-18] MEDS: ONDANSETRON (ODT) 4 MG TAB ODT (13:42)
== END 2017-10-18 14:54 | disposition home or self-care (01) ==
LOC: E/R 11:57
DX: I95.9 Hypotension, unspecified (principal); R10.84 Generalized abdominal pain; I10 Essential (primary) hypertension
CPT/HCPCS: 99283